=== PATIENT | female | born 1970 | race Caucasian/White ===

== ENCOUNTER 2018-02-23 21:43 | Emergency (ER) | payer OTHER, MEDICAID, SELFPAY ==
[2018-02-23 21:53] VITALS: BP 126/66; PULSE 111; RESP 22; TEMP 36.9; O2SAT 93; BMI 31.2
[2018-02-23 22:15] VITALS: BP 137/96; PULSE 112; RESP 24; O2SAT 100
--- NOTE | 2018-02-23 22:30 | DI.RAD.S_ITS ---
PROCEDURE: XR CHEST 2V INDICATIONS: shortness of breath TECHNIQUE: 2 views of the chest were acquired. COMPARISON: [facility], , CHEST 2 VIEW, 02/18/2017, 21:56. FINDINGS: Surgical changes and devices: None. Lungs and pleura: No pleural effusions or pneumothorax. Lungs are clear. Mediastinum: Mediastinal contours are normal. Heart size is normal. Bones and chest wall: No suspicious bony abnormalities. Soft tissues appear unremarkable. IMPRESSION: Normal for age. Dictated by: Mars Quijano M.D. on 02/24/2018 at 7:20 Approved by: Mars Quijano M.D. on 02/24/2018 at 7:20
[2018-02-23 22:40] LABS: Add Manual Diff / Slide Review NO; Basophils Percent Auto 1.1 % (0-2); Eosinophils Percent Auto 1.1 % (2-4); Hematocrit 38.1 % (36-46); Hemoglobin 13.1 g/dL (12.0-16.0); Lymphocytes Percent Auto 17.3 % (25-40); Mean Corpuscular HGB Conc 34.3 % (30-36); Mean Corpuscular Hemoglobin 29.8 PG (26-34); Mean Corpuscular Volume 86.8 fL (80-100); Monocytes Percent Auto 7.6 % (3-14); Neutrophils Absolute Auto 9300 /uL (3000-5900); Neutrophils Percent Auto 72.9 % (50-75); Platelet Count 240 X10^3/uL (150-400); Red Blood Cell Count 4.39 X10^6/uL (4.0-5.2); Red Cell Distribution Width 13.9 % (11.6-14.8); White Blood Cell Count 12.7 X10^3/uL (4.5-11.0)
[2018-02-23 22:47] LABS: Alanine Aminotransferase 40 IU/L (9-52); Albumin 3.9 g/dL (3.5-5.0); Albumin Globulin Ratio 1.3 (1.0-2.8); Alkaline Phosphatase 139 U/L (38-126); Aspartate Aminotransferase 31 IU/L (14-36); Bilirubin Total 0.7 mg/dL (0.2-1.3); Blood Urea Nitrogen 9 mg/dL (7-17); Calcium 8.9 mg/dL (8.4-10.2); Carbon Dioxide 29 mmol/L (22-32); Chloride 101 mmol/L (98-107); Estimated Glomerular Filt Rate > 60.0 mL/min (>60); Globulin 3.1 g/dL (1.7-4.1); Glucose 184 mg/dL (70-100); HEMOLYSIS < 15 (0-50); Potassium 3.6 mmol/L (3.4-5.1); Sodium 139 mmol/L (137-145)
[2018-02-23] MEDS: predniSONE 20 MG TABLET 60 MG PO (23:24)
[2018-02-23] MEDS: ONDANSETRON 4 MG ODT PO (23:24)
[2018-02-23] MEDS: LORazepam 2 MG/ML SYRINGE 1 MG IM (23:26)
[2018-02-23 23:45] VITALS: BP 145/88; PULSE 114; RESP 32; O2SAT 90
[2018-02-24] MEDS: ALBUTEROL/IPRATROPIUM 3 ML AMPUL INH (00:19)
[2018-02-24 00:22] VITALS: O2SAT 93
[2018-02-24 00:54] VITALS: BP 132/72; PULSE 117; RESP 33; O2SAT 92
[2018-02-24] MEDS: AZITHROMYCIN 250 MG TABLET 500 MG PO (01:04)
[2018-02-24 01:18] VITALS: BP 138/69; PULSE 117; RESP 19; O2SAT 97
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
== END 2018-02-24 01:21 | disposition home or self-care (01) ==
PROVIDERS: Emergency Provider Emergency Medicine; Family Provider Family Medicine; PCP Family Medicine
DX: J44.0 Chronic obstructive pulmonary disease with (acute) lower respiratory infection (principal); J20.9 Acute bronchitis, unspecified; F41.9 Anxiety disorder, unspecified
CPT/HCPCS: 36591; 71046; 80053; 85025; 93005; 93010; 93041; 94640; 96372; 99283; 99285; J2060

== ENCOUNTER 2018-06-15 17:02 | Emergency (ER) | payer OTHER, MEDICAID, SELFPAY ==
[2018-06-15 17:05] VITALS: BP 147/93; PULSE 95; RESP 18; TEMP 36.2; O2SAT 96; BMI 32.2
--- NOTE | 2018-06-15 21:31 | ED.DENTAL ---
HPI - Dental/Oral General Chief complaint: Dental/Oral Stated complaint: says ear infection and oral infection Time Seen by Provider: 06/15/18 20:35 Source: patient Mode of arrival: ambulatory Limitations: no limitations History of Present Illness HPI Narrative: 48-year-old female, former smoker presents with mild dental pain mild facial swelling and some right ear pain. She recently had 15 teeth pulled and her dentist put her on antibiotics. She took a few days of the antibiotics but developed a yeast infection so stopped her antibiotics. Her symptoms started in the aftermath. She has no trouble swallowing and denies any fever or chills. Onset (ago): day(s) Duration: constant Severity: mild Exacerbating factors: chewing Context: history of dental caries and poor dental care Treatment prior to arrival: none Related Data Home Medications Medication Instructions Recorded Confirmed pregabalin [Lyrica] 25 mg PO Q DAY #0 07/15/16 Previous Rx's Medication Instructions Recorded amoxicillin-pot clavulanate 875 mg PO Q12H 7 Days #0 tab 02/18/17 [Augmentin] alprazolam 0.25 mg PO BID #7 tab 02/24/18 azithromycin [Zithromax Z-Srini] See Label Instructions .ROUTE 02/24/18 .COMPLEX #6 tab prednisone 60 mg PO DAILY #12 tab 02/24/18 Allergies Allergy/AdvReac Type Severity Reaction Status Date / Time latex [LATEX] Allergy Unknown Verified 06/15/18 17:45 paroxetine [From PAXIL] Allergy Unknown Verified 06/15/18 17:45 phenytoin [From DILANTIN] Allergy Unknown Verified 06/15/18 17:45 Sulfa (Sulfonamide Allergy Unknown Verified 06/15/18 17:45 Antibiotics) [SULFA (SULFONAMIDE ANTIBIOTICS)] PCNS Allergy Unknown Uncoded 06/15/18 17:45 beta blockers Allergy Uncoded 06/15/18 17:46 Review of Systems Review of Systems All systems reviewed & are unremarkable except as noted in HPI and below Constitutional Denies chills, Denies fever(s), Denies lethargy and Denies weakness Eyes Denies change in vision, Denies eye discharge, Denies irritation and Denies loss of vision ENT Ears, Nose, Mouth, and Throat: Denies change in voice, Reports otalgia, Denies neck pain and Denies sore throat Cardiovascular Denies chest pain, Denies irregular heart rhythm, Denies lightheadedness, Denies palpitations, Denies dyspnea, Denies dyspnea on exertion and Denies orthopnea Respiratory Denies cough, Denies dyspnea, Denies dyspnea on exertion and Denies wheezing Gastrointestinal Gastrointestinal: Denies abdominal pain, Denies change in bowel habits, Denies diarrhea, Denies nausea and Denies vomiting Genitourinary Denies hematuria, Denies flank pain, Denies urinary incontinence and Denies urinary urgency Musculoskeletal Denies neck pain Integumentary/Breasts Denies pruritus, Denies erythema, Denies rash and Denies wounds Neurologic Denies confusion, Denies loss of vision and Denies weakness Psychiatric Denies anxiety, Denies confusion, Denies depression, Denies homicidal ideation and Denies suicidal ideation Endocrine Denies palpitations Hematologic/Lymphatic Denies easy bruising Allergic/Immunologic Denies wheezing [facility] Medical History Tooth abscess (Resolved) Sinusitis (Resolved) Anxiety (Inactive) COPD with acute exacerbation (Inactive) Surgical History No pertinent past surgical history (Acute) Social History Smoking Status: Current every day smoker Exam Narrative Exam Narrative: GEN: AOx3 and in mild distress FACE: mild nearly imperceptible R jaw swelling. No intra oral abscess EYES: Pupils are equal, round, and reactive to light and accommodation. Extraoccular muscles are intact bilaterally. There is no subconjunctival hemorrhage or exudate. EARS: Mild effusion behind R TM, no bulge or erythema. No loss of landmarks CHEST: Lungs are clear to auscultation bilaterally and free of wheezes, rales, or rhonchi. Heart rate is regular rhythm, there are no murmurs, clicks, rubs, or gallops. There is no chest wall tenderness. ABD: Abdomen is soft and nontender. There is no guarding or rebound. Bowel sounds are normal in all 4 quadrants. There is no mass or organomegaly. EXT: Full painless ROM of all extremities with no loss of sensation or strength. SKIN: Warm, pink, and dry. No erythema or rash Initial Vital Signs Initial Vital Signs: Vital Signs Temperature 97.1 F L 06/15/18 17:05 Pulse Rate 95 H 06/15/18 17:05 Respiratory Rate 18 06/15/18 17:05 Blood Pressure 147/93 H 06/15/18 17:05 Pulse Oximetry 96 06/15/18 17:05 Course Orders Ordered: Discontinued Medications Fluconazole (Diflucan) 150 mg PO NOW ONE Stop: 06/15/18 21:01 Last Admin: 06/15/18 21:36 Dose: 150 mg Nicotine (Nicoderm) 21 mg TOP NOW ONE Stop: 06/15/18 21:01 Last Admin: 06/15/18 21:36 Dose: 21 mg Vital Signs - 8 hr 06/15/18 21:40 Pulse Rate 94 H Respiratory Rate 20 Blood Pressure 142/87 H Pulse Oximetry 95 Discharge Plan Departure Patient Disposition: Home Clinical Impression: Face pain, Pain, dental, Candidiasis of vagina Discharge Date/Time: 06/15/18 21:42 Interventions: ED Discharge Assessment Last Done: 06/15/18 21:40 Instructions: DI for Dental Pain Activity Restrictions/Additional Instructions: *You have been diagnosed with [ Facial pain, dental pain, yeast infection ] *What to do: *Take medications as directed *Follow up with your primary care provider in 2-3 days, call for an appointment. Let them know you were seen in the Emergency Department and that we ask that you be seen in follow up *Return to ER if you should have any new, worsening or concerning symptoms Prescriptions: No Action pregabalin [Lyrica] 25 MG capsule 25 mg PO Q DAY Qty: 0 RF: 0 amoxicillin-pot clavulanate [Augmentin] 875 MG/125 MG tablet 875 mg PO Q12H 7 Days Qty: 0 RF: 0 azithromycin [Zithromax Z-Srini] 250 mg tablet See Label Instructions .ROUTE .COMPLEX Qty: 6 RF: 0 prednisone 20 mg tablet 60 mg PO DAILY Qty: 12 RF: 0 alprazolam 0.25 mg tablet 0.25 mg PO BID Qty: 7 RF: 0
[2018-06-15] MEDS: FLUCONAZOLE 150 MG TABLET PO (21:36)
[2018-06-15] MEDS: NICOTINE 21 MG PATCH TOP (21:36)
[2018-06-15 21:40] VITALS: BP 142/87; PULSE 94; RESP 20; O2SAT 95
== END 2018-06-15 21:42 | disposition home or self-care (01) ==
PROVIDERS: Emergency Provider Emergency Medicine; Family Provider Family Medicine; PCP Family Medicine
DX: K08.89 Other specified disorders of teeth and supporting structures (principal); R51 Headache; B37.3 Candidiasis of vulva and vagina
CPT/HCPCS: 99282; 99283

== ENCOUNTER 2018-10-15 03:54 | Emergency (ER) | payer OTHER, MEDICAID, SELFPAY ==
[2018-10-15 04:08] VITALS: BP 149/94; PULSE 110; RESP 20; TEMP 36.6; O2SAT 97; BMI 32.2
[2018-10-15] MEDS: KETOROLAC 60 MG/2 ML VIAL 30 MG IM (04:15)
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
== END 2018-10-15 04:35 | disposition home or self-care (01) ==
PROVIDERS: Emergency Provider Emergency Medicine; PCP Family Medicine
DX: M79.2 Neuralgia and neuritis, unspecified (principal)
CPT/HCPCS: 96372; 99282; 99283; J1885

== ENCOUNTER 2019-05-22 14:29 | Emergency (ER) | payer OTHER, MEDICAID, SELFPAY ==
[2019-05-22 14:49] VITALS: PULSE 104; RESP 22; TEMP 36.6; O2SAT 96
--- NOTE | 2019-05-22 15:50 | PC.NURSE ---
Pt states I am allergic to myself so I don't take any medications. Previous notes state she is was on Lyrica however pt states she does not take any home medications.
[2019-05-22] MEDS: ONDANSETRON 4 MG ODT SL (16:09)
[2019-05-22] MEDS: KETOROLAC 60 MG/2 ML VIAL 30 MG IM (16:09)
[2019-05-22 16:18] VITALS: BP 140/81
--- NOTE | 2019-05-22 16:20 | PC.NURSE ---
after administration of medications, pt states she is done and ready to go home. Provider notified.
--- NOTE | 2019-05-22 18:10 | ED.BACK ---
HPI - Back Pain/Injury <FANNIE Gross - Last Filed: 05/22/19 18:51> General Chief Complaint: Back Pain/Injury Stated Complaint: stick neck/ sciatic pain/ prev shingles Time Seen by Provider: 05/22/19 15:41 Source: patient Mode of arrival: Ambulatory Limitations: no limitations History of Present Illness HPI Narrative: The patient is a 49-year-old female current smoker with history of bipolar who presents with a chief complaint of neck and back pain on the left side. She states that this is related to her old shingles. She denies any fever, but complains of congestion. She presents with her caregiver [facility]. She denies any chest pain or shortness of breath. she states that she has not taken anything for the pain as she has multiple allergies. She states she is allergic to herself. The patient is a rather poor historian, with pressured speech and is tangential. She does not want to allow vital signs to be taken, refused to have her blood pressure taken and was unwilling to go over her history, allergies and current medications as she states it is all in the computer. Related Data Home Medications Medication Instructions Recorded Confirmed No Known Home Medications 05/22/19 05/22/19 Allergies Allergy/AdvReac Type Severity Reaction Status Date / Time latex [LATEX] Allergy Unknown Verified 05/22/19 15:50 paroxetine [From PAXIL] Allergy Unknown Verified 05/22/19 15:50 phenytoin [From DILANTIN] Allergy Unknown Verified 05/22/19 15:50 Sulfa (Sulfonamide Allergy Unknown Verified 05/22/19 15:50 Antibiotics) [SULFA (SULFONAMIDE ANTIBIOTICS)] PCNS Allergy Unknown Uncoded 06/15/18 17:45 beta blockers Allergy Uncoded 06/15/18 17:46 Review of Systems <FANNIE Gross - Last Filed: 05/22/19 18:51> Review of Systems Narrative: GENERAL: Denies chills, fatigue, malaise, fever, sweats. HEENT: Denies sinus pain, ear pain, sore throat, difficulty swallowing, dizziness. RESPIRATORY: Denies dyspnea, cough, wheezing, hemoptysis, sputum. CARDIOVASCULAR: Denies chest pain, palpitations, orthopnea, edema, GASTROINTESTINAL: Denies nausea, vomiting, abdominal pain, diarrhea, constipation, melena. : Denies dysuria, frequency, incontinence, hematuria, urinary retention. MUSCULOSKELETAL: CC SKIN: Denies rash, skin lesions, or other NEUROLOGIC: Denies weakness, headache, numbness, change in speech, confusion, seizures, incoordination. PSYCHIATRIC: See HPI 12 point review of systems is negative except for those stated above Patient History <FANNIE Gross - Last Filed: 05/22/19 18:51> Medical History Anxiety (Inactive) COPD with acute exacerbation (Inactive) Fibromyalgia (Acute) Sinusitis (Resolved) Tooth abscess (Resolved) Surgical History No pertinent past surgical history (Acute) Social History Smoking Status: Current every day smoker alcohol intake frequency: 0-2 drinks per day Substance Use Type: does not use Exam <FANNIE Gross - Last Filed: 05/22/19 18:51> Narrative Exam Narrative: GENERAL: Obese female no acute distress HEAD: Atraumatic. Normocephalic. No temporal or scalp tenderness. EYES: Pupils equal round and reactive. Extraocular motions intact. No scleral icterus. No injection or drainage. ENT: Nose without bleeding, purulent drainage or septal hematoma. Throat without erythema, tonsillar hypertrophy or exudate. Uvula midline. Airway patent. NECK: Trachea midline. No JVD or lymphadenopathy. Supple, nontender, no meningeal signs. CARDIOVASCULAR: Regular rate and rhythm without murmurs, gallops, or rubs. RESPIRATORY: Clear to auscultation. Breath sounds equal bilaterally. No wheezes, rales, or rhonchi. No cough. No increased respiratory effort. No accessory muscle use. EXTREMITIES: No clubbing, cyanosis, or edema. No joint tenderness, effusion, or edema noted. BACK: Pain to palpation left side of neck and spine. No pain to palpation CT or L-spine. NEURO: AOx3. Tangential, pressured speech. SKIN: No rash or erythema on visible skin. No erythema rash ecchymosis noted on left side of back. Initial Vital Signs Initial Vital Signs: Vital Signs Temperature 97.9 F 05/22/19 14:49 Pulse Rate 104 H 05/22/19 14:49 Respiratory Rate 22 05/22/19 14:49 Pulse Oximetry 96 05/22/19 14:49 <Paramjit Caballero DO - Last Filed: 05/22/19 18:55> Initial Vital Signs Initial Vital Signs: Vital Signs Temperature 97.9 F 05/22/19 14:49 Pulse Rate 104 H 05/22/19 14:49 Respiratory Rate 22 05/22/19 14:49 Pulse Oximetry 96 05/22/19 14:49 Course <FANNIE Gross - Last Filed: 05/22/19 18:51> Orders Ordered: Discontinued Medications Ketorolac Tromethamine (Toradol) 30 mg IM NOW ONE Stop: 05/22/19 16:02 Last Admin: 05/22/19 16:09 Dose: 30 mg Documented by: MONICA Ondansetron HCl (Zofran Odt) 4 mg SL NOW ONE Stop: 05/22/19 16:02 Last Admin: 05/22/19 16:09 Dose: 4 mg Documented by: MONICA Vital Signs Vital signs: Vital Signs - 8 hr 05/22/19 14:49 05/22/19 16:18 Temperature 97.9 F Pulse Rate 104 H Respiratory Rate 22 Blood Pressure [Right Arm] 140/81 Pulse Oximetry 96 <Paramjit Caballero DO - Last Filed: 05/22/19 18:55> Orders Ordered: Discontinued Medications Ketorolac Tromethamine (Toradol) 30 mg IM NOW ONE Stop: 05/22/19 16:02 Last Admin: 05/22/19 16:09 Dose: 30 mg Documented by: MONICA Ondansetron HCl (Zofran Odt) 4 mg SL NOW ONE Stop: 05/22/19 16:02 Last Admin: 05/22/19 16:09 Dose: 4 mg Documented by: MONICA Vital Signs Vital signs: Vital Signs - 8 hr 05/22/19 14:49 05/22/19 16:18 Temperature 97.9 F Pulse Rate 104 H Respiratory Rate 22 Blood Pressure [Right Arm] 140/81 Pulse Oximetry 96 MDM - Back Pain/Injury <FANNIE Gross - Last Filed: 05/22/19 18:51> Lab Data Labs: Urine Dip Bedside Urine Glucose Negative Bedside Urine Bilirubin - Negative Bedside Urine Ketone - Negative Urine Specific [place] 1.030 Bedside Urine Occult Blood - Negative Bedside Urine pH 6.0 Bedside Urine Protein - Negative Bedside Urine Urobilinogen - Negative Bedside Urine Nitrite - Negative Bedside Urine Leukocytes - Negative Esterase MDM Narrative Medical decision making narrative: The patient is a 49-year-old female who presents with a chief complaint of back pain. It is very difficult to ascertain history, as she is refusing to give information. She also does not want vitals taking, but eventually agrees. I initiated treatment with Toradol as well as Zofran and she immediately requested to leave. I encouraged to come back for the emergency department for any acute concerns such as chest pain, shortness of breath and encouraged follow-up with primary care provider. The patient was tangential with pressured speech that her stay in the emergency department, and was discharged with her caregiver. She is hemodynamically stable, ambulating around without incident. Discussed that she can come back to the emergency department at any point, but encouraged follow-up with primary care provider <Paramjit Caballero DO - Last Filed: 05/22/19 18:55> Lab Data Labs: Urine Dip Bedside Urine Glucose Negative Bedside Urine Bilirubin - Negative Bedside Urine Ketone - Negative Urine Specific [place] 1.030 Bedside Urine Occult Blood - Negative Bedside Urine pH 6.0 Bedside Urine Protein - Negative Bedside Urine Urobilinogen - Negative Bedside Urine Nitrite - Negative Bedside Urine Leukocytes - Negative Esterase Discharge Plan Departure Patient Disposition: Home Clinical Impression: Chronic left-sided back pain Qualifiers: Back pain location: back pain in unspecified location Qualified Code(s): M54.9 - Dorsalgia, unspecified Discharge Date/Time: 05/22/19 16:38 Prescriptions: No Action No Known Home Medications RF: 0 Referrals: Emiliana Betancourt MD [Primary Care Provider] - <Paramjit Caballero DO - Last Filed: 05/22/19 18:55> Sign Out Provider Sign Out Attestation: Dr Caballero Co-Sign Statement: I was available for consultation during this patient's emergency department visit. This chart is signed by myself for administrative purposes only. I did not have direct contact with this patient during this visit. They were seen independently by the APC.
== END 2019-05-22 16:38 | disposition home or self-care (01) ==
PROVIDERS: Emergency Provider Nurse Practitioner Family; PCP Family Medicine
DX: M54.9 Dorsalgia, unspecified (principal); M54.2 Cervicalgia; F31.9 Bipolar disorder, unspecified; F17.210 Nicotine dependence, cigarettes, uncomplicated
CPT/HCPCS: 81003; 96372; 99282; 99283; J1885

== ENCOUNTER 2019-06-28 15:58 | Emergency (ER) | payer OTHER, MEDICAID, SELFPAY ==
[2019-06-28 16:05] VITALS: BP 121/104; PULSE 112; RESP 20; TEMP 36.4; O2SAT 98; BMI 33.7
--- NOTE | 2019-06-28 16:30 | ED_ITS ---
HPI - Skin/Abscess/Foreign Bdy General Chief complaint: Skin/Abscess/Foreign Body Stated complaint: injection wounds on arms, thinks infected Time Seen by Provider: 06/28/19 16:14 Source: patient Mode of arrival: Family Vehicle Limitations: no limitations History of Present Illness HPI narrative: Patient is a 49-year-old female who presents with abscess and right AC area a. 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 She says over the last week she has relapsed she was previously clean for about 8 months but has relapsed. She is quite embarrassed by this back she has no fever or chills. She also has some erythema of her left dorsal hand but no abscess there. MD complaint: abscess/boil Related Data Home Medications Medication Instructions Recorded Confirmed varenicline [Chantix Starting 1 ea PO DIRECTED 06/28/19 06/28/19 Month Box] Previous Rx's Medication Instructions Recorded doxycycline hyclate 100 mg PO BID #14 cap 06/28/19 Allergies Allergy/AdvReac Type Severity Reaction Status Date / Time latex [LATEX] Allergy Unknown Verified 06/28/19 16:15 paroxetine [From PAXIL] Allergy Unknown Verified 06/28/19 16:15 phenytoin [From DILANTIN] Allergy Unknown Verified 06/28/19 16:15 Sulfa (Sulfonamide Allergy Unknown Verified 06/28/19 16:15 Antibiotics) [SULFA (SULFONAMIDE ANTIBIOTICS)] PCNS Allergy Unknown Uncoded 06/28/19 16:15 beta blockers Allergy Uncoded 06/28/19 16:15 Review of Systems Review of Systems Narrative: GENERAL: Denies chills,fever HEENT: Denies throat pain RESPIRATORY: Denies dyspnea, cough, wheezing CARDIOVASCULAR: Denies chest pain, palpitations GASTROINTESTINAL: Denies nausea, vomiting MUSCULOSKELETAL: Denies extremity pain, injury SKIN: See HPI NEUROLOGIC: Denies weakness, dizziness, headache, numbness 8 point review of systems is negative except for those stated above and HPI Patient History Medical History Anxiety (Inactive) COPD with acute exacerbation (Inactive) Fibromyalgia (Acute) Sinusitis (Resolved) Tooth abscess (Resolved) Surgical History No pertinent past surgical history (Acute) Social History Smoking Status: Current every day smoker Smoking Status: Current every day smoker alcohol intake frequency: 0-2 drinks per day Substance Use Type: does not use Exam Initial Vital Signs Initial Vital Signs: Vital Signs Temperature 97.6 F 06/28/19 16:05 Pulse Rate 112 H 06/28/19 16:05 Respiratory Rate 20 06/28/19 16:05 Blood Pressure 121/104 H 06/28/19 16:05 Pulse Oximetry 98 06/28/19 16:05 GENERAL: Well-appearing, well-nourished and in no acute distress. CARDIOVASCULAR: peripheral pulses in tact, cap refill <2 sec RESPIRATORY: No respiratory distress, speaks in full sentences without difficulty EXTREMITIES: Normal range of motion, no clubbing or edema. Neurovascularly intact NEUROLOGICAL: Cranial nerves II through XII grossly intact. Normal gait and speech. SKIN: Right AC, 1.5 cm right 2 cm fluctuation with minimal induration and erythema Left dorsal hand is erythematous but no abscess fluctuation moving all fingers Procedures Abscess I/D I&D #1: Site: upper extremity Side (if applicable): right Local Anesthetic: lidocaine 1% and with epi Amount of anesthesia used (mL): 3 Technique: incised with #11 blade Amount of fluid expressed (mL): 8 Irrigation: No Packing used?: none Complications: pain Course Orders Ordered: ED Orders 06/28/19 16:43 Wound Culture and Gram Stain Stat Vital Signs Vital signs: Vital Signs - 8 hr 06/28/19 16:05 Temperature 97.6 F Pulse Rate 112 H Respiratory Rate 20 Blood Pressure 121/104 H Pulse Oximetry 98 Discharge Plan Departure Patient Disposition: Home Clinical Impression: Abscess of skin or subcutaneous tissue Qualifiers: Site of cutaneous abscess: extremity Site of cutaneous abscess of extremity: upper extremity Laterality: right Qualified Code(s): L02.413 - Cutaneous abscess of right upper limb Discharge Date/Time: 06/28/19 16:55 Instructions: DI for Skin Abscess Activity Restrictions/Additional Instructions: *You have been diagnosed with abscess *What to do: Strongly recommend going to detox and stop injecting drugs *Continue to take medications as directed--> SENT TO [facility] IN [place] Doxycycline 100 mg twice a day for 7 days *Follow up with your primary care provider in 2-3 days *Return to ER if you should have increasing redness no fevers sweats chills inability to move fingers or any new, worsening or concerning symptoms Prescriptions: New doxycycline hyclate 100 mg capsule 100 mg PO BID Qty: 14 RF: 0 No Action Chantix Starting Month Box 0.5 mg (11)- 1 mg (42) tablets,dose pack 1 ea PO DIRECTED RF: 0 Referrals: Emiliana Betancourt MD [Primary Care Provider] -
== END 2019-06-28 16:55 | disposition home or self-care (01) ==
PROVIDERS: Emergency Provider Emergency Medicine; PCP Family Medicine
DX: L02.413 Cutaneous abscess of right upper limb (principal)
CPT/HCPCS: 10060; 87070; 87075; 87077; 87147; 87186; 87205; 99281; 99283